=== PATIENT | male | born 2005 | race African-American/Black ===

== ENCOUNTER 2023-11-30 15:10 | Emergency (ER) | payer OTHER ==
[~2023-11-30] VITALS: Ht 177.8 cm; Wt 70.4 kg
[2023-11-30] MEDS: FAMOTIDINE 20 MG TAB PO ONE (17:20)
[2023-11-30] MEDS: methylPREDNISolone 125MG 2ML VIAL IM ONE (17:20)
[2023-11-30] MEDS ORDERED: PRED20TA PO (18:10)
[2023-11-30 18:17] VITALS: BP 128/88; TEMP 98.2; O2SAT 100
== END 2023-11-30 18:19 | disposition home or self-care (01) ==
LOC: M ED 15:10
DX: L50.9 Urticaria, unspecified (principal); F17.290 Nicotine dependence, other tobacco product, uncomplicated; Z79.52 Long term (current) use of systemic steroids
CPT/HCPCS: 96372; 99283; J2919